=== PATIENT | female | born 1970 | race American Indian/Alaskan Native ===

== ENCOUNTER 2018-02-19 05:09 | Emergency (ER) | payer OTHER ==
[2018-02-19] MEDS ORDERED: MOTRIN ONE (05:32)
[2018-02-19] MEDS ORDERED: CATAPRES ONE (05:32)
[2018-02-19] MEDS ORDERED: CATAPRES PO ONE (05:47)
[2018-02-19] MEDS ORDERED: MOTRIN PO ONE (05:49)
--- NOTE | 2018-02-19 06:29 | XRay Report ---
FINAL REPORT EXAM: XR SPINE LUMBOSACRAL 2-3V HISTORY: lower back pain TECHNIQUE: Three views of the lumbar spine were submitted. FINDINGS: The disc heights and alignment appear normal. There is no evidence of fracture. The SI joints appear normal. IMPRESSION: Within normal limits.
--- NOTE | 2018-02-19 08:33 | Emergency Department Report ---
ED Back Pain/Injury HPI - General Chief Complaint: Back Pain/Injury Stated Complaint: BACK PAIN Time Seen by Provider: 02/19/18 08:02 Source: patient Limitations: No Limitations - History of Present Illness Initial Comments: This is a 48-year-old -[place] female who presents with low back pain for 1 day. Patient reports history of chronic back pain and hypertension. Patient reports the last time her back flared was in 2006 or 2007. She had to have cortisone injections by orthopedic surgeon. Patient states she was walking around yesterday morning and couldn't bend over. She started taking NSAIDs with no improvement of symptoms. She does not recall injury. Denies numbness or tingling, swelling, erythema, nausea or vomiting. MD Complaint: back pain Onset/Timin -: days(s) Similar Symptoms Previously: Yes (chronic low back pain) Place: street Radiation: none Severity: moderate Severity scale (0 -10): 7 Quality: sharp, aching Consistency: intermittent Improves With: immobilization Worsens With: movement, walking Associated Symptoms: denies other symptoms Treatments Prior to Arrival: NSAIDS - Related Data Home Medications Medication Instructions Recorded Confirmed Last Taken Norvasc 10 mg PO DAILY 02/19/18 02/19/18 Unknown Previous Rx's Medication Instructions Recorded Last Taken Type Cyclobenzaprine HCl [Flexeril 5 MG 5 mg PO TID PRN #15 tab 02/19/18 Unknown Rx TAB] Ibuprofen [Motrin 600 MG tab] 600 mg PO Q8H PRN #15 tablet 02/19/18 Unknown Rx Allergies Allergy/AdvReac Type Severity Reaction Status Date / Time No Known Allergies Allergy Verified 02/19/18 05:53 ED Review of Systems ROS: Stated complaint: BACK PAIN Other details as noted in HPI Constitutional: denies: chills, fever Respiratory: denies: cough, shortness of breath, wheezing Cardiovascular: denies: chest pain, palpitations Gastrointestinal: denies: abdominal pain, nausea, diarrhea Genitourinary: denies: urgency, dysuria, discharge Musculoskeletal: back pain (midline low back pain). denies: joint swelling, arthralgia Skin: denies: rash, lesions Neurological: denies: headache, weakness, numbness, paresthesias Psychiatric: denies: anxiety, depression ED Back Pain Physical Exam - Exam General: Vital signs noted. No distress. Alert and acting appropriately. Back/Abdomen: Yes Perilumbar Tenderness, No Abdominal Tenderness, No Perithoracic Tenderness, No Sacroiliac Tenderness, No Flank Tenderness, No Straight Leg Raise Pain Neuro: Yes Normal Sensation, Yes Normal DTR's, Yes Normal Gait, No Motor Weakness ED Course Vital Signs 02/19/18 02/19/18 02/19/18 05:19 05:48 07:13 Temperature 99.3 F 98 F Pulse Rate 86 77 72 Respiratory 18 16 Rate Blood Pressure 222/122 222/120 Blood Pressure 157/96 [Left] O2 Sat by Pulse 99 100 Oximetry ED Medical Decision Making - Radiology Data Radiology results: report reviewed EXAM: XR SPINE LUMBOSACRAL 2-3V HISTORY: lower back pain TECHNIQUE: Three views of the lumbar spine were submitted. FINDINGS: The disc heights and alignment appear normal. There is no evidence of fracture. The SI joints appear normal. IMPRESSION: Within normal limits. - Medical Decision Making This is a 48 y.o. female presents with low back pain for 1 day. Patient has a history of chronic low back pain and hypertension Patient was examined by me. Blood pressure elevated on arrival. Patient given clonidine 0.1 mg po once in triage, motrin 800 mg po once, and cyclobenzaprine 10 mg po once in ER. Obtained x-ray of L-spine. Blood pressure trending down, 164/87 at discharge. Patient currently take Norvasc 10 mg by mouth daily, states she will take it when she arrive home. X-rays read by radiologist and no acute findings. Patient informed of results. Start ibuprofen and cyclobenzaprine for pain. Plan discussed with patient to discharge home and treat outpatient. She agrees with ER plan. Patient discharged home in stable condition. Referral to Orthopedic Surgeon. Follow up with PCP in 2-3 days Critical care attestation.: If time is entered above; I have spent that time in minutes in the direct care of this critically ill patient, excluding procedure time. ED Disposition Clinical Impression: Strain of muscle, fascia and tendon of lower back, initial encounter Low back pain Qualifiers: Chronicity: chronic Back pain laterality: midline Sciatica presence: without sciatica Qualified Code(s): M54.5 - Low back pain Disposition: TO HOME OR SELFCARE Is pt being admited?: No Does the pt Need Aspirin: No Condition: Stable Instructions: Low Back Strain (ED), Chronic Back Pain (ED) Additional Instructions: Rest Use ice or heat on affected area for 20 minutes and off for 2 hours. Take pain medication as needed for pain. Don't drive or operate heavy machinery while taking muscle relaxers because they may cause drowsiness. Follow up with Primary Care Provider in 2-3 days. Follow up with Orthopedic Surgery for management of chronic low back pain. Prescriptions: Cyclobenzaprine HCl [Flexeril 5 MG TAB] 5 mg PO TID PRN #15 tab PRN Reason: Muscle Spasm Ibuprofen [Motrin 600 MG tab] 600 mg PO Q8H PRN #15 tablet PRN Reason: Pain Referrals: [facility] [Outside] - 3-5 Days [facility] [Outside] - 3-5 Days VICTORIA MONTES DE OCA MD [Staff Physician] - 3-5 Days [facility] [Provider Group] - 3-5 Days Time of Disposition: 09:17 Print Language: MALAYSIAN
[2018-02-19 08:41] VITALS: BP 164/87
[2018-02-19] MEDS ORDERED: FLEXERIL PO ONE (09:25)
== END 2018-02-19 09:30 | disposition home or self-care (01) ==
LOC: ED 05:09
DX: S39.012A Strain of muscle, fascia and tendon of lower back, initial encounter (principal); G89.29 Other chronic pain; I10 Essential (primary) hypertension; Y93.01 Activity, walking, marching and hiking; Y99.8 Other external cause status; Y92.414 Local residential or business street as the place of occurrence of the external cause
CPT/HCPCS: 72100; 99283

== ENCOUNTER 2018-08-19 15:13 | Emergency (ER) | payer SELFPAY ==
[2018-08-19 15:30] VITALS: BP 176/111
--- NOTE | 2018-08-19 16:00 | Emergency Department Report ---
ED General Adult HPI - General Chief complaint: High BP Stated complaint: HBP (199/123) Time Seen by Provider: 08/19/18 15:51 Source: patient Mode of arrival: Ambulatory Limitations: No Limitations - History of Present Illness Initial comments: Ms. Quach is a 48 yo female who presents with elevated blood pressure. She has been without antihypertensive medications for 6 months. She has been unemployed without insurance for the last year. She has noticed that blood pressure has been increasingly high over the last few weeks. She denies hea dache. Denies blurry vision. Denies chest pain. Denies paresthesias. Norvasc was her previous home medication. 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 -: Gradual, month(s) (6) Associated Symptoms: denies other symptoms - Related Data Home Medications Medication Instructions Recorded Confirmed Last Taken Norvasc 10 mg PO DAILY 02/19/18 02/19/18 Unknown Previous Rx's Medication Instructions Recorded Last Taken Type Cyclobenzaprine HCl [Flexeril 5 MG 5 mg PO TID PRN #15 tab 02/19/18 Unknown Rx TAB] Ibuprofen [Motrin 600 MG tab] 600 mg PO Q8H PRN #15 tablet 02/19/18 Unknown Rx amLODIPine [Norvasc] 10 mg PO DAILY 90 Days #90 tab 08/19/18 Unknown Rx Allergies Allergy/AdvReac Type Severity Reaction Status Date / Time No Known Allergies Allergy Verified 08/19/18 15:29 ED Review of Systems ROS: Stated complaint: HBP (199/123) Other details as noted in HPI Comment: All other systems reviewed and negative Constitutional: denies: fever, malaise Respiratory: denies: cough Cardiovascular: denies: chest pain ED Past Medical Hx - Past Medical History Previous Medical History?: Yes Hx Hypertension: Yes Hx Psychiatric Treatment: Yes (anxiety) - Surgical History Past Surgical History?: Yes Additional Surgical History: Gastric Bypass, Right Ovary Removal - Family History Family history: CAD/TX, hypertension - Social History Smoking Status: Never Smoker Substance Use Type: Alcohol - Medications Home Medications: Home Medications Medication Instructions Recorded Confirmed Last Taken Type Cyclobenzaprine HCl [Flexeril 5 MG 5 mg PO TID PRN #15 tab 02/19/18 Unknown Rx TAB] Ibuprofen [Motrin 600 MG tab] 600 mg PO Q8H PRN #15 tablet 02/19/18 Unknown Rx Norvasc 10 mg PO DAILY 02/19/18 02/19/18 Unknown History amLODIPine [Norvasc] 10 mg PO DAILY 90 Days #90 tab 08/19/18 Unknown Rx ED Physical Exam - General Limitations: No Limitations General appearance: alert, in no apparent distress - Head Head exam: Present: atraumatic, normocephalic - Eye Eye exam: Present: normal appearance - ENT ENT exam: Present: mucous membranes moist - Neck Neck exam: Present: normal inspection. Absent: tenderness, meningismus - Respiratory Respiratory exam: Present: normal lung sounds bilaterally. Absent: respiratory distress, wheezes, rales, rhonchi - Cardiovascular Cardiovascular Exam: Present: regular rate, normal rhythm, normal heart sounds. Absent: systolic murmur, diastolic murmur, rubs, gallop - GI/Abdominal GI/Abdominal exam: Present: soft, normal bowel sounds. Absent: distended, tenderness, guarding, rebound - Extremities Exam Extremities exam: Present: normal inspection - Back Exam Back exam: Present: normal inspection - Neurological Exam Neurological exam: Present: alert, oriented X3 - Psychiatric Psychiatric exam: Present: normal affect, normal mood - Skin Skin exam: Present: warm, dry, intact, normal color. Absent: rash ED Course Vital Signs 08/19/18 15:25 Temperature 97.8 F Pulse Rate 94 H Respiratory 20 Rate Blood Pressure 176/111 O2 Sat by Pulse 96 Oximetry ED Medical Decision Making - EKG Data 08/19/18 15:58 EKG obtained 1534 Normal sinus rhythm rate 85 bpm axis normal intervals positive LVH and nonspecific T-wave pattern no ST elevation - Medical Decision Making Asymptomatic hypertensive urgency: 90 day prescription of amlodipine 10 mg tablets provided. Also given referral to outside clinic Critical care attestation.: If time is entered above; I have spent that time in minutes in the direct care of this critically ill patient, excluding procedure time. ED Disposition Clinical Impression: Asymptomatic hypertensive urgency Disposition: - TO HOME OR SELFCARE Is pt being admited?: No Does the pt Need Aspirin: No Condition: Stable Instructions: Chronic Hypertension (ED) Prescriptions: amLODIPine [Norvasc] 10 mg PO DAILY 90 Days #90 tab Referrals: [facility] [Outside] - 3-5 Days
== END 2018-08-19 16:13 | disposition home or self-care (01) ==
LOC: ED 15:13
DX: I16.0 Hypertensive urgency (principal); I10 Essential (primary) hypertension; F41.9 Anxiety disorder, unspecified; Z98.84 Bariatric surgery status
CPT/HCPCS: 93005; 93010; 99282